=== PATIENT | male | born 1995 | race Caucasian/White ===

== ENCOUNTER 2020-03-27 16:25 | Emergency (ER) | payer BC, MEDICAID, OTHER ==
[~2020-03-27] VITALS: Ht 180.3 cm; Wt 65.8 kg
[2020-03-27 19:32] VITALS: BP 149/88
== END 2020-03-27 19:33 | disposition home or self-care (01) ==
LOC: ER 16:25
DX: Z03.821 Encounter for observation for suspected ingested foreign body ruled out (principal)
CPT/HCPCS: 70360; 70490

== ENCOUNTER 2021-08-16 17:13 | Emergency (ER) | payer MEDICAID, OTHER ==
[~2021-08-16] VITALS: Ht 180.3 cm; Wt 72.6 kg
[2021-08-16] MEDS ORDERED: KETOROLAC TROMETH 30 MG/ML 1ML VIAL IV ONE (18:00)
[2021-08-16] MEDS ORDERED: fentaNYL CITRATE 100 MCG/2 ML VL IV ONE (18:00)
[2021-08-16] MEDS ORDERED: HYDR-4798 PO (19:00)
[2021-08-16] MEDS ORDERED: ONDANSETRON HCL 4 MG/2 ML VIAL IV ONE ×2 (19:00→20:15)
[2021-08-16] MEDS ORDERED: HYDROmorphone HCL 2 MG/ML VL IV ONE (20:15)
[2021-08-16] MEDS ORDERED: SODIUM CHLORIDE 0.9% 1,000 ML IV ONE (21:00)
[2021-08-16] MEDS ORDERED: METOCLOPRAMIDE HCL 5MG/ml INJ 2ml VIAL IV ONE (21:00)
[2021-08-16 21:54] VITALS: BP 109/69
== END 2021-08-16 21:57 | disposition home or self-care (01) ==
LOC: ER 17:13
DX: S42.301A Unspecified fracture of shaft of humerus, right arm, initial encounter for closed fracture (principal); X58.XXXA Exposure to other specified factors, initial encounter; Y93.9 Activity, unspecified; Y92.9 Unspecified place or not applicable; Y99.9 Unspecified external cause status
CPT/HCPCS: 29105; 73060; 96361; 96374; 96375; 96376; 99284; J1170; J1885; J2405; J2765; J3010; J7030